=== PATIENT | female | born 1945 | race Caucasian/White ===

== ENCOUNTER 2016-08-09 13:00 | Inpatient (IN) | payer MEDICARE, BC ==
[~2016-08-09] VITALS: Ht 162.6 cm; Wt 88.6 kg
--- NOTE | ~2016-08-09 | OR ---
[facility] 71 Y [address] ROOM: [place] [address] LOCATION: [facility] ADMIT DATE: 08/22/2016 OR/Procedure Report DISCHARGE DATE: FAMILY PHYSICIAN: Roxanna Zuñiga MD ATTENDING PHYSICIAN: CHU CASTORENA SURGEON: Chu Castorena MD POLICY VALUE CALCULATOR: PHYLLIS Saldana and Jens Aguila CST/CLEANER AND POLISHER. DATE OF PROCEDURE: 08/22/2016 PREOPERATIVE DIAGNOSIS: Right knee degenerative joint disease. POSTOPERATIVE DIAGNOSIS: Right knee degenerative joint disease. PROCEDURE PERFORMED: Right knee medial compartment, unicompartment arthroplasty with Stuart LYNSEY robotic arm guidance and computer navigation. ANESTHESIA: Spinal plus adductor canal block plus subcutaneous and periarticular local anesthesia (ropivacaine with epinephrine and Toradol). ESTIMATED BLOOD LOSS: Less than 10 mL. DRAINS: None. SPECIMEN: None. COMPLICATIONS: None. IMPLANTS: Stuart LYNSEY, right medial, size 4, femoral and tibial components with 10 mm tibial polyethylene insert. DRAINS: None. SPECIMEN: None. COMPLICATIONS: None. INDICATION FOR PROCEDURE: Ms. Quiles is a 71-year-old female who presents with advanced right knee medial compartment degenerative joint disease and associated severely compromised activities of daily living. Risks, benefits, limitations, and alternatives to this procedure have been thoroughly reviewed, and informed consent has been granted. We have specifically reviewed risks and implications of infection, deep venous thrombosis, pulmonary embolism, mortality, wear, loosening, stiffness, instability, and potential need for revision as well as potential need for conversion to total knee arthroplasty. PATIENT'S NAME: MAIKEL QUILES [facility] AGE: 71 Y [address] ROOM: [address] [address] LOCATION: [facility] ADMIT DATE: 08/22/2016 OR/Procedure Report DISCHARGE DATE: FAMILY PHYSICIAN: Roxanna Zuñiga MD ATTENDING PHYSICIAN: CHU CASTORENA Informed consent granted. DESCRIPTION OF PROCEDURE: Ms. Quiles was positioned supine after administration of spinal anesthesia plus adductor canal block and prophylactic antibiotics. A well-padded pneumatic tourniquet was placed around her right proximal thigh, and her right lower extremity was prepped and draped with vigilant sterile technique. Examination under anesthesia demonstrated 0 to 130 degrees of flexion. There were no active skin lesions or masses. There was a mild effusion. There was no erythema. There was no abnormal warmth. There was no ligamentous insufficiency. The right lower extremity was elevated and exsanguinated with an Esmarch wrap, and the pneumatic tourniquet was inflated. A 4 mm incisions were made at each of the 2 tibial pin tract sites and each of the 2 femoral pin tract sites, and each of the 2 tibial and femoral guide pins were placed through their appropriate soft tissue protectors (abutting the far cortex). Tibial and femoral trackers were secured and a trial range of motion was performed. The knee was approached through a longitudinal midline incision and abridged medial parapatellar arthrotomy. There was a moderate amount of benign- appearing translucent synovial fluid. There were no loose bodies. Cruciate ligaments were intact. There was no synovitis. There were moderate-sized osteophytes at the medial femoral condyle and medial tibial plateau. These were excised. There was mild softening and fibrillation of the articular cartilage at the patella and the femoral trochlea, but there were no high- grade partial thickness defects. The articular cartilage in the visible portions of the lateral compartment appeared normal. Medial compartment osteophytes were excised. Component position was optimized virtually prior to burring the articular surfaces to prepare for the implants. Degenerative remnants of the medial meniscus were excised. Trial reduction demonstrated optimal component tracking and optimal ligament balance. All prepared osseous surfaces were thoroughly irrigated with bacteriostatic pulsatile saline lavage prior to cementing the tibial and femoral components in a single stage using Riya Simplex cement containing premixed tobramycin. All excess cement was removed. After the cement had hardened, final range of motion was confirmed to be 0 to 135 degrees of flexion. The varus deformity had been corrected to 2 degrees of residual varus. There was excellent ligamentous balance. Patellar tracking was optimal. The entire incision and entire joint space were thoroughly irrigated with PATIENT'S NAME: MAIKEL QUILES [facility] AGE: 71 Y [address] ROOM: [address] [address] LOCATION: [facility] ADMIT DATE: 08/22/2016 OR/Procedure Report DISCHARGE DATE: FAMILY PHYSICIAN: Roxanna Zuñiga MD ATTENDING PHYSICIAN: CHU CASTORENA bacteriostatic pulsatile saline lavage at this point as well as several times throughout the case. Local anesthetic had been injected into the posterior capsule and medial capsule. Local anesthetic was injected subcutaneously at this point. The arthrotomy was closed with multiple simple interrupted #1 Vicryl. Subcutaneous tissues were thoroughly irrigated and subsequently reapproximated with simple deep interrupted 0 Vicryl. The skin was closed with superficial buried interrupted 2-0 Vicryl followed by surgical yesika. The dressings consisted of Xeroform gauze followed by sterile gauze, ABD pads, and an Gerardo wrap. There were no complications. MD ULH BRENNER/adriana /[id number] d: 08/23/16 0409 t: 08/27/16 1202, OPERATIVE SUMMARY
[2016-08-09] MEDS ORDERED: ENALAPRIL-HCTZ1 EACH PO (15:38)
[2016-08-09] MEDS ORDERED: PROTONIX40 MG PO (15:38)
[2016-08-09] MEDS ORDERED: KLOR-CON 1010 MEQ PO (15:39)
[2016-08-09] MEDS ORDERED: LIPITOR10 MG PO (15:39)
[2016-08-09] MEDS ORDERED: SYSTANE 0.3-0.440 ML OPHTH (15:40)
[2016-08-09] MEDS ORDERED: PATANOL 0.1% DR0.1 % OPHTH (15:40)
[2016-08-09] MEDS ORDERED: PRESERVISION A1 EACH PO (15:41)
[2016-08-09] MEDS ORDERED: VIACTIV SOFT C1 EACH PO (15:41)
[2016-08-09] MEDS ORDERED: TYLENOL EXTRA500 MG PO (15:43)
[2016-08-09] MEDS ORDERED: COLACE CLEAR50 MG PO (15:43)
[2016-08-09] MEDS ORDERED: PEPCID20 MG PO (15:44)
[2016-08-11] MEDS ORDERED: TUMS REGULAR ST1 TAB PO (13:50)
[2016-08-22 09:17] LABS: BILIRUBIN URINE NEGATIVE (NEGATIVE); BLOOD URINE 25 /UL (NEGATIVE); COLOR URINE YELLOW (YELLOW); GLUCOSE URINE NEGATIVE (NEGATIVE); KETONE URINE NEGATIVE (NEGATIVE); LEUKOCYTES URINE 25 /UL (NEGATIVE); NITRITE URINE NEGATIVE (NEGATIVE); PROTEIN URINE NEGATIVE (NEGATIVE); SPEC GRAVITY URINE 1.015 (1.003-1.035); TURBIDITY URINE CLEAR (CLEAR); UROBILINOGEN URINE NORMAL (NORMAL)
[2016-08-22 09:25] LABS: BACTERIA URINE RARE (NEGATIVE); EPITHELIAL URINE RARE #/HPF (NEGATIVE); MUCUS URINE NEGATIVE (NEGATIVE); RBC URINE 0-2 #/HPF (NEGATIVE); WBC URINE 0-2 #/HPF (NEGATIVE)
--- NOTE | 2016-08-22 16:58 | NUR ---
Introduced self/role to patient and family. Patient had attended the preop joint class. Reports she has DME at home. No anticipated dismissal concerns. Reviewed and encouraged use of IS. Has foot pumps on bilat. Will follow and assist as needs identified.
--- NOTE | 2016-08-22 17:10 | NUR ---
Significant Event: From PACU at 1600. Dressing C/D/I. Ez wrap ice at all times. CSM numb at mid calf. Dilaudid 2mg at 1710. No void at this time. Follow up:
--- NOTE | 2016-08-23 04:13 | NUR ---
POD#1 RIGHT TKA, SURGICAL DSG IN PLACE CDI, GOOD CSMS, UP SBA/GAIT BELT/FWW TO BATHROOM AND DOES WELL. GOOD PO INTAKE/OUTPUT, NO BM THIS SHIFT. VS WNL AND ON CPOX OVERNIGHT R/T HIGH RISK DWIGHT AND MAINTAINED >90% ON RA ALL NIGHT. RFA PIV SALINE LOCKED. PAIN CONTROLLED WITH DILAUDID LD@0300 AND SCHEDULED TYLENOL AND WILL REASSESS BEFORE SHIFT CHANGE FOR MEDICATION NEEDS. PLANS TO DC HOME ON DISCHARGE.
--- NOTE | 2016-08-23 14:25 | NUR ---
Attempted to see patient a few time today; but student nurses were in there with her each time I came to see her. Reviewed chart and plan is likely home. Will try to touchbase with her first thing in the morning. CM product managent intern TH.
[2016-08-23] MEDS ORDERED: COLACE100 MG PO (17:26)
[2016-08-23] MEDS ORDERED: MIRALAX17 GM PO (17:28)
[2016-08-23] MEDS ORDERED: XARELTO10 MG PO (17:29)
[2016-08-23] MEDS ORDERED: VALIUM5 MG PO (17:33)
[2016-08-23] MEDS ORDERED: DILAUDID 2MG(HYD2 MG (17:34)
--- NOTE | 2016-08-23 18:38 | NUR ---
Significant Event: Ambulates with SBA and walker. Dressing changed, yesika intact. Ez wrap ice at all times. Dilaudid 2mg and Tylenol 1000mg last at 1653. Voids without difficulty. CSM WNL. C/O itching and redness to chest, Benadryl and Decadron given, rash cleared. questioned possible reaction to antibiotic. Dasha education given with dismissal instuctions, patient and family state understanding. Dismissed to home with family. Follow up:
== END 2016-08-23 18:05 | disposition disaster alternative care site (69) | DRG 470 ==
LOC: G3N 08-22 08:16
PROVIDERS: ADMIT Orthopaedic Surgery
PROC: 8E0YXBG Computer Assisted Procedure of Lower Extremity, With Computerized Tomography (ICD-10-PCS; principal; 2016-08-22)
PROC: 8E0Y0CZ Robotic Assisted Procedure of Lower Extremity, Open Approach (ICD-10-PCS; principal; 2016-08-22)
PROC: 0SRC0L9 Replacement of Right Knee Joint with Medial Unicondylar Synthetic Substitute, Cemented, Open Approach (ICD-10-PCS; principal; 2016-08-22)
DX: M17.11 Unilateral primary osteoarthritis, right knee (principal); E11.51 Type 2 diabetes mellitus with diabetic peripheral angiopathy without gangrene; I10 Essential (primary) hypertension; E78.5 Hyperlipidemia, unspecified; K58.9 Irritable bowel syndrome, unspecified; K21.9 Gastro-esophageal reflux disease without esophagitis; R21 Rash and other nonspecific skin eruption; L29.9 Pruritus, unspecified
CPT/HCPCS: C1713; C1776; J1100; J1885; J2250; J2300; J2795; J3370; J7030

== ENCOUNTER → 2016-08-11 | Outpatient (CLI) | payer MEDICARE, BC ==
[~2016-08-11] MED LIST: COLACE CLEAR50 MG PO; COLACE100 MG PO; DILAUDID 2MG(HYD2 MG; ENALAPRIL-HCTZ1 EACH PO; KLOR-CON 1010 MEQ PO; LIPITOR10 MG PO; MIRALAX17 GM PO; PATANOL 0.1% DR0.1 % OPHTH; PEPCID20 MG PO; PRESERVISION A1 EACH PO; PROTONIX40 MG PO; SYSTANE 0.3-0.440 ML OPHTH; TUMS REGULAR ST1 TAB PO; TYLENOL EXTRA500 MG PO; VALIUM5 MG PO; VIACTIV SOFT C1 EACH PO; XARELTO10 MG PO
== END | disposition disaster alternative care site (69) ==
LOC: GNJRC 09:52
DX: M25.561 Pain in right knee (principal); M25.461 Effusion, right knee